=== PATIENT | female | born 1995 | race Caucasian/White ===

== ENCOUNTER 2018-12-20 20:01 | Emergency (ER) | payer BC ==
[2018-12-20 20:07] VITALS: BP 120/87
--- NOTE | 2018-12-20 20:08 | UC ---
Dental HPI - HPI Summary HPI Summary: 23 yo female presents with mouth injury. She tells me that around 1930 tonight she was playing with her friend's black lab and the dog's head accidentally hit pt's front tooth. Pt said it has felt very "wobbly" since. She has mild pain. Has not taken anything OTC. She does not have a dentist locally. - History of Current Complaint Chief Complaint: UCTrauma Stated Complaint: MOUTH INJURY Time Seen by Provider: 12/20/18 20:08 Hx Obtained From: Patient Hx Last Menstrual Period: 1 WEEK AGO Onset/Duration: Sudden Onset Severity: Mild Pain Intensity: 3 Pain Scale Used: 0-10 Numeric - Allergies/Home Medications Allergies/Adverse Reactions: Allergies Allergy/AdvReac Type Severity Reaction Status Date / Time No Known Allergies Allergy Verified 12/20/18 20:07 Home Medications: Home Medications Cetirizine* [ZyrTEC 10 MG TAB*] 10 mg PO DAILY 12/20/18 [History Confirmed 12/20] Norethindrone AC-Eth Estradiol [12/01] 1 tab PO 12/20/18 [History Confirmed 12/20/18] Sertraline* [Zoloft*] 25 mg PO DAILY 12/20/18 [History Confirmed 12/20/18] PMH/Surg Hx/FS Hx/Imm Hx Psychological History: Anxiety, Depression - Surgical History Surgical History: Yes Surgery Procedure, Year, and Place: TONSILLECTOMY, DENTAL IMPLANT - Family History Known Family History: Positive: None - Social History Lives: With Family Alcohol Use: Occasionally Substance Use Type: None Smoking Status (MU): Never Smoked Tobacco Review of Systems All Other Systems Reviewed And Are Negative: Yes Constitutional: Positive: Negative Skin: Positive: Negative Eyes: Positive: Negative ENT: Positive: Dental Pain Respiratory: Positive: Negative Cardiovascular: Positive: Negative Neurovascular: Positive: Negative Neurological: Positive: Negative Psychological: Positive: Negative Physical Exam - Summary Physical Exam Summary: GENERAL: NAD. WDWN. No pain distress. SKIN: No rashes, sores, lesions, or open wounds. HEENT: Head: AT/NC CHEST: No accessory muscle use. Breathing comfortably and in no distress. CV: Pulses intact. Cap refill <2seconds NEURO: Alert. PSYCH: Age appropriate behavior. Triage Information Reviewed: Yes Vital Signs: Initial Vital Signs Temp 98.1 F 12/20/18 20:04 Pulse 89 12/20/18 20:04 Resp 16 12/20/18 20:04 BP 120/87 12/20/18 20:04 Pulse Ox 100 12/20/18 20:04 Vital Signs Reviewed: Yes Dental: Positive: Percussion Tenderness @ - Tooth #9. Negative: Gross Decay/ Caries @, Dental Fracture @, Abscess @, Cellulitis @, Cervical Lymphadenopathy, Bleeding Dental Complaint Course/Dx - Course Course Of Treatment: Impact at Tooth #9. Pt subjectively feels that the tooth is loose, but on exam feels stable. She was given information for local dentists and advised to call first thing sunday morning for an appointment. - Differential Dx/Diagnosis Provider Diagnosis: Dental trauma Discharge - Sign-Out/Discharge Documenting (check all that apply): Patient Departure All imaging exams completed and their final reports reviewed: No Studies - Discharge Plan Condition: Stable Disposition: HOME Patient Education Materials: Acute Dental Trauma (ED) Additional Instructions: If you develop a fever, shortness of breath, chest pain, new or worsening symptoms - please call your PCP or go to the ED. Leave the tooth alone as much as possible. Please call Dr. Hart at the number below first thing sunday to schedule an appointment - Billing Disposition and Condition Condition: STABLE Disposition: Home
== END 2018-12-20 20:40 | disposition home or self-care (01) ==
LOC: UCEAST 20:01
DX: S09.93XA Unspecified injury of face, initial encounter (principal); F32.9 Major depressive disorder, single episode, unspecified; Z79.899 Other long term (current) drug therapy; W54.1XXA Struck by dog, initial encounter; Y93.89 Activity, other specified; Y92.9 Unspecified place or not applicable
CPT/HCPCS: 99201; G0463

== ENCOUNTER 2019-02-25 07:12 | Emergency (ER) | payer BC ==
[2019-02-25 07:23] VITALS: BP 140/81
--- NOTE | 2019-02-25 07:41 | UC ---
UC General HPI - HPI Summary HPI Summary: started chest cough with mucous on sunday. denies fever. body aches S/sx since Sat / sun (today is Sunday) - History of Current Complaint Chief Complaint: UCRespiratory Stated Complaint: SORE THROAT Time Seen by Provider: 02/25/19 07:39 Hx Obtained From: Patient Hx Last Menstrual Period: 02/18/19 Pain Intensity: 0 - Allergy/Home Medications Allergies/Adverse Reactions: Allergies Allergy/AdvReac Type Severity Reaction Status Date / Time No Known Allergies Allergy Verified 02/25/19 07:23 PMH/Surg Hx/FS Hx/Imm Hx Previously Healthy: Yes - Surgical History Surgical History: Yes Surgery Procedure, Year, and Place: TONSILLECTOMY, DENTAL IMPLANT - Family History Known Family History: Positive: None - Social History Alcohol Use: Occasionally Substance Use Type: None Smoking Status (MU): Never Smoked Tobacco Review of Systems All Other Systems Reviewed And Are Negative: Yes Constitutional: Positive: Negative Skin: Positive: Negative Eyes: Positive: Negative ENT: Positive: Sinus Congestion Respiratory: Positive: Cough Cardiovascular: Positive: Negative Gastrointestinal: Positive: Negative Motor: Positive: Negative Neurovascular: Positive: Negative Musculoskeletal: Positive: Negative Neurological: Positive: Negative Psychological: Positive: Negative Is Patient Immunocompromised?: No Physical Exam Triage Information Reviewed: Yes Appearance: Well-Appearing, Well-Nourished Vital Signs: Initial Vital Signs Temp 98.5 F 02/25/19 07:19 Pulse 68 02/25/19 07:19 Resp 18 02/25/19 07:19 BP 140/81 02/25/19 07:19 Pulse Ox 98 02/25/19 07:19 Vital Signs Reviewed: Yes Eye Exam: Normal ENT: Positive: Pharyngeal erythema - mild redness, Nasal congestion, Other - bilat tm normal Neck exam: Normal Neck: Positive: Supple, Nontender, No Lymphadenopathy Respiratory Exam: Normal Respiratory: Positive: Chest non-tender, Lungs clear, No respiratory distress, Other: - + rhonchorus cough, mild exp wheeze Cardiovascular Exam: Normal Cardiovascular: Positive: RRR, No Murmur, Pulses Normal Abdominal Exam: Normal Abdomen Description: Positive: Nontender Musculoskeletal Exam: Normal Neurological Exam: Normal - grossly nonfocal Psychological Exam: Normal Skin Exam: Normal - no visible or reported rash Course/Dx - Course Course Of Treatment: BP 140/81 Inf A / B ns neg reviewed coa / tx plan. Questions as posed answered to the best of my ability - Diagnoses Provider Diagnosis: Bronchitis, Sinusitis Discharge - Sign-Out/Discharge Documenting (check all that apply): Patient Departure All imaging exams completed and their final reports reviewed: No Studies - Discharge Plan Condition: Good Disposition: HOME Prescriptions: Albuterol 2.5MG/3ML (0.083%)* [Ventolin 2.5 MG/3 ML NEB.ALYSSA*] 2.5 mg INH Q6H # 25 neb Albuterol HFA INHALER* [Ventolin HFA Inhaler*] 1 - 2 puff INH Q6H PRN #1 mdi PRN Reason: Wheezing Benzonatate CAP* [Tessalon 100 MG CAP*] 100 mg PO TID PRN #30 cap PRN Reason: Cough DOXYcycline CAP(*) [DOXYcycline 100MG CAP(*)] 100 mg PO BID #20 cap Patient Education Materials: Sinusitis (ED), Acute Bronchitis (ED), Bronchospasm (ED) Referrals: No Primary Care Phys,NOPCP [Primary Care Provider] - Additional Instructions: BP 140/81 Follow up with your primary care physician, per routine (in the next month if possible) for respiratory and blood pressure check. Seek medical attention for worse or new problems. - Billing Disposition and Condition Condition: GOOD Disposition: Home
[2019-02-25 08:08] LABS: Influenza A Molecular NEGATIVE (Negative); Influenza B Molecular NEGATIVE (Negative)
== END 2019-02-25 08:30 | disposition home or self-care (01) ==
LOC: UCEAST 07:12
DX: J40 Bronchitis, not specified as acute or chronic (principal); J32.9 Chronic sinusitis, unspecified
CPT/HCPCS: 99212; G0463

== ENCOUNTER 2019-11-09 09:12 | Emergency (ER) | payer BC ==
[2019-11-09 09:21] VITALS: BP 135/90
--- NOTE | 2019-11-09 09:29 | UC ---
HPI Febrile Illness - HPI Summary HPI Summary: 4 DAYS AGO STARTED W/ INTERMITTENT FEVER. MAX 101F. HAS TRIED TYLENOL W/ SOME RELIEF. ASSOC W/ sinus congestion, ear and throat pain with walter. - History of Current Complaint Chief Complaint: UCRespiratory Time Seen by Provider: 11/09/19 09:14 Hx Obtained From: Patient Hx Last Menstrual Period: 10/31/19 Pain Intensity: 7 Pain Scale Used: 0-10 Numeric Aggravating Factors: Nothing Alleviating Factors: Nothing - Allergy/Home Medications Allergies/Adverse Reactions: Allergies Allergy/AdvReac Type Severity Reaction Status Date / Time No Known Allergies Allergy Verified 11/09/19 09:21 Home Medications: Home Medications Acetaminophen [APAP] 650 mg PO ONCE 11/09/19 [History Confirmed 11/09/19] Levonorgestrel-Ethin Estradiol [Chateal Eq-28 Tablet] 1 each PO 11/09/19 [ History] Naproxen Sodium [Aleve] 440 mg PO ONCE 11/09/19 [History Confirmed 11/09/19] PMH/Surg Hx/FS Hx/Imm Hx - Additional Past Medical History Additional PMH: NO CHRONIC ILLNESS Previously Healthy: Yes - Surgical History Surgical History: Yes Surgery Procedure, Year, and Place: TONSILLECTOMY, DENTAL IMPLANT - Family History Known Family History: Positive: None, Non-Contributory - Social History Alcohol Use: Rare Substance Use Type: None Smoking Status (MU): Never Smoked Tobacco Review of Systems All Other Systems Reviewed And Are Negative: Yes Constitutional: Positive: Fever Skin: Negative: Rash ENT: Positive: Sore Throat, Ear Ache, Sinus Congestion. Negative: Nasal Discharge Respiratory: Negative: Shortness Of Breath, Cough Musculoskeletal: Negative: Myalgia Neurological: Negative: Headache Physical Exam Triage Information Reviewed: Yes Appearance: Well-Appearing Vital Signs: Initial Vital Signs Temp 95.4 F 11/09/19 09:17 Pulse 97 11/09/19 09:17 Resp 18 11/09/19 09:17 BP 135/90 11/09/19 09:17 Pulse Ox 100 11/09/19 09:17 Vital Signs Reviewed: Yes Eyes: Positive: Conjunctiva Clear ENT: Positive: Pharynx normal, TMs normal, Uvula midline Neck: Positive: Supple, Nontender, No Lymphadenopathy Respiratory Exam: Normal Cardiovascular Exam: Normal Neurological: Positive: Alert Skin: Negative: Rashes Course/Dx - Course Course Of Treatment: aCUTE urI with good vitals and unremarkable exam. rapid flu is neg. Advised to maintain good hydration, has good vitals. - Febrile Illness Differential Diagnoses: Fever of Unknown Origin, Other: - Diagnoses Provider Diagnosis: Pharyngitis Discharge ED - Sign-Out/Discharge Documenting (check all that apply): Patient Departure All imaging exams completed and their final reports reviewed: No Studies - Discharge Plan Condition: Good Disposition: HOME Patient Education Materials: Viral Syndrome (ED) Referrals: No Primary Care Phys,NOPCP [Primary Care Provider] - Additional Instructions: Please remain hydrated. - Billing Disposition and Condition Condition: GOOD Disposition: Home
[2019-11-09 09:50] LABS: Influenza A Molecular NEGATIVE (Negative); Influenza B Molecular NEGATIVE (Negative)
== END 2019-11-09 10:29 | disposition home or self-care (01) ==
LOC: UCEAST 09:12
DX: J02.9 Acute pharyngitis, unspecified (principal)
CPT/HCPCS: 99211; G0463